=== PATIENT | male | born 1990 | race Two or more races ===

== ENCOUNTER 2018-06-12 23:14 | Emergency (ER) | payer MEDICAID ==
[~2018-06-12] VITALS: Ht 182.9 cm; Wt 90.7 kg
[2018-06-12 23:32] VITALS: BP 132/72
[2018-06-12] MEDS ORDERED: Norco 5mg/325mg tab ORAL ONE (23:45)
[2018-06-13] MEDS ORDERED: IBUPROFEN600 MG ORAL (00:04)
--- NOTE | 2018-06-13 00:04 | Emergency Room Report ---
History of Present Illness General Chief Complaint: Laceration Source: Patient Present Illness HPI Is a 27-year-old male who presents with laceration to his left eyebrow. He was carrying some water down the steps and was talking to his friend behind him. He was sepsis and missed a step and fell down 2 steps. He fell and hit his head on the average of the stair. He sustained a laceration to the left eyebrow area. He also has swelling to the left cheek area. No loss of consciousness. Pain is 9 out of 10. No nausea no vomiting. No fever chills but denies any other complaint. Allergies: Coded Allergies: No Known Allergies (Unverified , 06/12/18) Patient History Past Medical History: see triage record, old chart reviewed Past Surgical History: none Pertinent Family History: none Social History: Denies: smoking Immunizations: other Reviewed Nursing Documentation: PMH: Agreed; PSxH: Agreed Nursing Documentation-PMH Past Medical History: No Stated History Review of Systems Eye: Denies: eye pain, blurred vision ENT: Denies: ear pain, nose congestion, throat swelling Respiratory: Denies: cough, shortness of breath Cardiovascular: Denies: chest pain, palpitations Gastrointestinal: Denies: abdominal pain, diarrhea, nausea, vomiting Musculoskeletal: Denies: back pain, joint pain Skin: Denies: rash Neurological: Denies: headache, numbness Endocrine: Denies: increased thirst, increased urine Hematologic/Lymphatic: Denies: easy bruising All Other Systems: negative except mentioned in HPI Physical Exam Vital Signs Date Time Temp Pulse Resp B/P (MAP) Pulse Ox O2 Delivery O2 Flow Rate FiO2 06/12/18 23:27 98.6 82 16 126/69 99 Room Air vitals normal Sp02 EP Interpretation: reviewed, normal General Appearance: well appearing, no apparent distress, alert Head: normocephalic, atraumatic Eyes: bilateral eye PERRL, bilateral eye EOMI ENT: hearing grossly normal, normal pharynx, other - Face: He has a vertical 3 cm jagged laceration over the left eyebrow. He has a small contusion over the left cheek. No deformity. Extraocular movement intact. Neck: full range of motion, supple, no meningismus Respiratory: chest non-tender, lungs clear, normal breath sounds Cardiovascular #1: regular rate, rhythm, no murmur Gastrointestinal: normal bowel sounds, non tender, no mass, no organomegaly, no bruit, non-distended Musculoskeletal: back normal, gait/station normal, normal range of motion Psychiatric: mood/affect normal Skin: warm/dry Procedures Laceration/Wound Repair Laceration/Wound Repair : Consent: Verbal Wound Location: face Wound's Depth, Shape: into muscle, irregular, contused tissue Wound Length (cm): 3 Wound Explored: clean Irrigated w/ Saline (ccs): 500 Betadine Prep?: Yes Anesthesia: Lidocaine w/ Epi Volume Anesthetic (ccs): 3 Wound Repaired With: sutures Suture Size/Type: 5:0, proline Number of Sutures: 6 Patient Tolerated: Well Complications: None Medical Decision Making Diagnostic Impression: Primary Impression: Head injury, acute Qualified Codes: S09.90XA - Unspecified injury of head, initial encounter Additional Impressions: Laceration of eyebrow, left Qualified Codes: S01.112A - Laceration without foreign body of left eyelid and periocular area, initial encounter Facial contusion Qualified Codes: S00.83XA - Contusion of other part of head, initial encounter ER Course Patient with head injury and soft tissue injury secondary to fall. No fracture or bleed. We'll discharge home. CT/MRI/US Diagnostic Results CT/MRI/US Diagnostic Results : Imaging Test Ordered: CT had Impression negative per radiologist Last Vital Signs Date Time Temp Pulse Resp B/P (MAP) Pulse Ox O2 Delivery O2 Flow Rate FiO2 06/12/18 23:32 98.3 77 18 132/72 99 Room Air Status: improved Disposition: HOME, SELF-CARE Condition: Stable Scripts Ibuprofen* (MOTRIN*) 600 Mg Tablet 600 MG ORAL THREE TIMES A DAY, #30 TAB 0 Refills Prov: Shen Villegas MD 06/13/18 Referrals: NOT CHOSEN IPA/,REFERRING (PCP) Patient Instructions: Facial Laceration Additional Instructions: Follow-up with your DrBrandon in 5-7 days for suture removal. Return if symptom worsen. Shen Villegas MD Jun 13, 2018 00:04
[2018-06-13 00:25] VITALS: BP 130/72
[2018-06-13 00:27] VITALS: BP 132/72
--- NOTE | 2018-06-13 09:00 | Diagnostic Imaging Report ---
Indication: Head trauma headache Technique: Contiguous 5 mm thick transaxial imaging of the head obtained in a Siemens Sensation [address] scanner. Soft tissue and bone windows generated. Automatic Exposure Control was utilized. Total Dose length Product (DLP): 1354.[address] Dose Index Volume (CTDIvol): 70.38 mGy Comparison: none Findings: The size and configuration of the cortical sulci, basal cisterns, and ventricles are within normal limits for age. There is no mass effect, midline shift, or edema identified. There is no evidence of acute hemorrhage or abnormal intra-axial or extra-axial fluid collections. The bones are unremarkable. There is soft tissue swelling over the left frontal scalp. Impression: No mass effect, edema or acute bleed. Left frontal scalp contusion [facility] has communicated the preliminary results to the Emergency Department. Their findings are largely concordant with this report. The CT scanner at [facility] is accredited by the [employer] and the scans are performed using dose optimization techniques as appropriate to a performed exam including Automatic Exposure control.
[2018-06-13] MEDS ORDERED: MEDERMA20 GM TP (14:17)
[2018-06-13] MEDS ORDERED: MUPIROCIN22 GM TOPIC (14:17)
[2018-06-13] MEDS ORDERED: TYLENOL EXTRA500 MG ORAL (14:17)
== END 2018-06-13 01:10 | disposition home or self-care (01) ==
LOC: EMR 23:46
DX: S01.112A Laceration without foreign body of left eyelid and periocular area, initial encounter (principal); S00.83XA Contusion of other part of head, initial encounter; F17.200 Nicotine dependence, unspecified, uncomplicated; W10.8XXA Fall (on) (from) other stairs and steps, initial encounter; Y92.89 Other specified places as the place of occurrence of the external cause
CPT/HCPCS: 12051; 70450; 99284; Z7502

== ENCOUNTER 2018-06-13 13:00 | Emergency (ER) | payer MEDICAID ==
[~2018-06-13] VITALS: Ht 182.9 cm; Wt 90.7 kg
[~2018-06-13 13:00] MED LIST: IBUPROFEN600 MG ORAL
[2018-06-13 13:41] VITALS: BP 129/72
[2018-06-13] MEDS ORDERED: Bacitracin Oint UD TOPIC ONE (14:15)
[2018-06-13] MEDS ORDERED: Ketorolac 30mg Inj IM ONE (14:15)
--- NOTE | 2018-06-13 14:15 | Emergency Room Report ---
History of Present Illness General Chief Complaint: Wound Recheck/Suture Removal Source: Patient Present Illness HPI 27 Y/O male presents to the ED c/o 02/12 in severity pain and tenderness to the left eye brow area s/p sustaining laceration after mechanical trip and fall on stairs last night. Pt. was evaluated in the ED had CT imaging and suture repair. pt. is concerned about if his eyebrow will look "normal" after this is healed because that is "his good side of his face". Pt. denies bleeding or d/c from the wound. he reports getting the head dressing wet when showering this am. pt. also reports bruising appearing on his eyelid. Pt. denies new trauma or fall/. Denies N/V, LOC, difficulty with speech or memory. pt. also reports some soreness in the right shoulder. denies gross motor weaknesses or paresthesias. Allergies: Coded Allergies: No Known Allergies (Unverified , 06/12/18) Patient History Past Medical History: see triage record Past Surgical History: none Pertinent Family History: none Immunizations: UTD Reviewed Nursing Documentation: PMH: Agreed; PSxH: Agreed Nursing Documentation-PMH Past Medical History: No Stated History Review of Systems All Other Systems: negative except mentioned in HPI Physical Exam Vital Signs Date Time Temp Pulse Resp B/P (MAP) Pulse Ox O2 Delivery O2 Flow Rate FiO2 06/13/18 13:28 98.2 77 18 129/72 97 Room Air Sp02 EP Interpretation: reviewed, normal General Appearance: no apparent distress, alert, GCS 15, non-toxic Head: normocephalic, other - left eyebrow laceration with sutures in place, no bleeding, no discharge, no erythema or warmth. Eyes: bilateral eye normal inspection, bilateral eye PERRL, bilateral eye EOMI , bilateral eye other - no photophobia ENT: hearing grossly normal, normal voice Neck: full range of motion Respiratory: lungs clear, normal breath sounds, speaking full sentences Cardiovascular #1: regular rate, rhythm Cardiovascular #2: 2+ radial (R) Musculoskeletal: back normal, gait/station normal, normal range of motion, tender - mild TTP to the lateral right shoulder in the musculature. no obvious deformities, step offs, or clicking with ROM. pt. has FROM, no weakness, NVI Neurologic: alert, oriented x3, responsive, motor strength/tone normal, sensory intact, normal gait, speech normal, grossly normal Psychiatric: judgement/insight normal - excessive worry about scarring. Skin: normal color, no rash, warm/dry, well hydrated, wd healing/no infection noted - left eyebrow laceration with sutures in place, no bleeding, no discharge , no erythema or warmth. Medical Decision Making PA Attestation Dr. Wren is my supervising Physician whom patient management has been discussed with. Diagnostic Impression: Primary Impression: Encounter for post-traumatic wound check ER Course 27 Y/O male presents to the ED c/o 02/12 in severity pain and tenderness to the left eye brow area s/p sustaining laceration after mechanical trip and fall on stairs last night. Pt. was evaluated in the ED had CT imaging and suture repair. pt. is concerned about if his eyebrow will look "normal" after this is healed because that is "his good side of his face". Pt. denies bleeding or d/c from the wound. he reports getting the head dressing wet when showering this am. pt. also reports bruising appearing on his eyelid. Pt. denies new trauma or fall/. Denies N/V, LOC, difficulty with speech or memory. pt. also reports some soreness in the right shoulder. denies gross motor weaknesses or paresthesias. Ddx considered but are not limited to Fracture, dislocation, contusion, concussion Sprain/Strain/Spasm Vital signs: are WNL, pt. is afebrile H&PE are most consistent with contusion, no evidence of focal neurological deficit, no loss of consciousness. - no evidence of infection at this time. ORDERS: none required at this time. PE and HPI do not indicate CT at this time. ED INTERVENTIONS: -D/w pt reasoning for not doing a repeat Head CT, also discussed red flag symptoms to keep an eye out for that would indicate prompt return to the ED. - d/w pt. that I am unable to determine the extent of scarring at this time. d/ w pt. that scaring is inevitable since he sustained a laceration, and that I am trained to identify and treat emergent conditions. d/w pt. that his inquiry and scar concerns would most appropriately be addressed by a plastic surgeon rather than an ED provider. - Pt. verbalize his understanding and agreement with proposed treatment plan. DISCHARGE: At this time pt. is stable for d/c to home. Will provide printed patient care instructions, and any necessary prescriptions. Care plan and follow up instructions have been discussed with the patient prior to discharge. Last Vital Signs Date Time Temp Pulse Resp B/P (MAP) Pulse Ox O2 Delivery O2 Flow Rate FiO2 06/13/18 13:41 98.2 77 18 129/72 97 Room Air Disposition: HOME, SELF-CARE Condition: Stable Scripts Emollient Combination No.46 (MEDERMA) 20 Gm Cream..g. 1 APPLIC TP TID, #20 GM 2 Refills Prov: Sissy Young 06/13/18 Acetaminophen* (TYLENOL EXTRA STRENGTH*) 500 Mg Tablet 500 MG ORAL Q6H PRN for Mild Pain/Temp > 100.5, #20 TAB 0 Refills Prov: Sissy Young 06/13/18 Mupirocin* (MUPIROCIN*) 22 Gm Oint...g. 1 APPLIC TOPIC THREE TIMES A DAY, #22 GM Prov: Sissy Young 06/13/18 Referrals: NOT CHOSEN IPA/MD,REFERRING (PCP) Patient Instructions: Medical Screening Exam, Wound Check Additional Instructions: Take previously prescribed and new medications as directed. Do not start Scar Cream until after sutures have been removed. Follow up with a Primary Care Provider in 3-5 days, even if your symptoms have resolved. --Please review list of primary care clinics, if you do not already have a primary care provider Regarding Cosmetic appearance: Emergency department providers are primarily trained to identify and treat emergent conditions. Inquiries about cosmetic appearance/ scar concerns would most appropriately be addressed by plastic surgeon rather than an ED provider. Return sooner to ED if new symptoms occur, or current symptoms become worse, such as: nausea/vomiting, slurred speech, lapses in Memory, worsening of head pain, or redness/ warmth around the sutured laceration. - Please note that this Emergency Department Report was dictated using Particle Coderestaurant assistant manager technology software, occasionally this can lead to erroneous entry secondary to interpretation by the dictation equipment. Sissy Young Jun 13, 2018 14:15
[2018-06-13] MEDS ORDERED: TYLENOL EXTRA500 MG ORAL (14:17)
[2018-06-13] MEDS ORDERED: MEDERMA20 GM TP (14:17)
[2018-06-13] MEDS ORDERED: MUPIROCIN22 GM TOPIC (14:17)
[2018-06-13 14:28] VITALS: BP 129/72
== END 2018-06-13 14:30 | disposition home or self-care (01) ==
LOC: EMR 13:50
DX: Z48.00 Encounter for change or removal of nonsurgical wound dressing (principal); F17.200 Nicotine dependence, unspecified, uncomplicated; R51 Headache; M79.18 Myalgia, other site
CPT/HCPCS: 96372; 99283; J1885

== ENCOUNTER 2018-07-28 14:45 | Emergency (ER) | payer OTHER ==
[~2018-07-28] VITALS: Ht 182.9 cm; Wt 88.5 kg
[~2018-07-28 14:45] MED LIST changes: +MEDERMA20 GM TP; +MUPIROCIN22 GM TOPIC; +NORCO 5-325 TA1 EACH ORAL; +TYLENOL EXTRA500 MG ORAL; +VYVANSE10 MG PO
[2018-07-28 14:59] VITALS: BP 122/68
--- NOTE | 2018-07-28 15:11 | NUR ---
ED Nurse Note: patient walked into ED c/o of upper left abdomen pain that he rates a 10/10, patient states that he started feeling this pain last night. states "i have no idea how it started"
--- NOTE | 2018-07-28 15:29 | Emergency Room Report ---
History of Present Illness General Chief Complaint: Abdominal Pain Source: Patient Present Illness HPI Patient is a 27-year-old male presented after increased abdominal discomfort and diarrhea. Patient reports having prior history of sinus infection which he is currently taking antibiotics. Patient reports being on an antibiotic which he took twice a day initially for 3 days and subsequently had the antibiotic changed to levofloxacin. He reportedly took 1 dose of this medication and then had missed subsequent doses.He reports having prior history of ADHD as well as taking Lexapro for antidepressant use. Patient takes clonidine intermittently. Allergies: Coded Allergies: No Known Allergies (Unverified , 06/12/18) Patient History Past Medical History: see triage record Reviewed Nursing Documentation: PMH: Agreed; PSxH: Agreed Nursing Documentation-PMH Past Medical History: No Stated History Review of Systems All Other Systems: negative except mentioned in HPI Physical Exam Vital Signs Date Time Temp Pulse Resp B/P (MAP) Pulse Ox O2 Delivery O2 Flow Rate FiO2 07/28/18 14:59 97.5 74 18 122/68 98 Room Air General Appearance: well appearing, no apparent distress, alert, GCS 15 Head: normocephalic, atraumatic ENT: hearing grossly normal, normal voice Neck: full range of motion, supple Respiratory: lungs clear, normal breath sounds, no respiratory distress, speaking full sentences Cardiovascular #1: normal peripheral pulses, regular rate, rhythm, no edema Gastrointestinal: normal inspection, non tender, soft, no mass Musculoskeletal: no calf tenderness Neurologic: normal inspection, alert, oriented x3, responsive, normal gait Psychiatric: mood/affect normal Skin: no rash Medical Decision Making Diagnostic Impression: Primary Impression: Nonspecific abdominal pain ER Course Patient presented for abdominal pain. Differential diagnoses included ischemic bowel, appendicitis, perforated viscus, abdominal aortic aneurysm, inferior myocardial infarction, viral gastroenteritis. Patient has a benign exam and does not appear to require any further imaging or laboratory testing at this time. Patient was given medications for symptomatic treatment. Patient appears to have nonspecific abdominal pain. Is likely related to patient's recent use of azithromycin. Patient was advised that he may need further workup for C. difficile if symptoms persist. Patient did not appear to have any acute abdomen at this time. The patient is advised to follow up with primary care doctor in 1-2 days. Patient is advised to return if any worsening condition or if any changes in status that are concerning. This report is dictated with Dragon superintendent container terminal software which may occasionally lead to discrepancies related to use of this software. EKG Diagnostic Results Rate: normal - 57 Rhythm: NSR ST Segments: no acute changes Last Vital Signs Date Time Temp Pulse Resp B/P (MAP) Pulse Ox O2 Delivery O2 Flow Rate FiO2 07/28/18 14:59 74 18 Room Air 07/28/18 14:59 97.5 122/68 98 Status: improved Disposition: HOME, SELF-CARE Condition: Stable Scripts Omeprazole Magnesium (PRILOSEC OTC) 20 Mg Tablet.dr 20 MG ORAL DAILY, #30 TAB Prov: Scott Contreras MD 07/28/18 Ondansetron (Zofran) 4 Mg Tablet 4 MG ORAL Q6H PRN for Nausea & Vomiting, #30 TAB 0 Refills Prov: Scott Contreras MD 07/28/18 Dicyclomine Hcl* (DICYCLOMINE HCL*) 10 Mg Capsule 10 MG PO QID, #30 CAP Prov: Scott Contreras MD 07/28/18 Scott Contreras MD Jul 28, 2018 15:29
--- NOTE | 2018-07-28 16:00 | NUR ---
HAND-OFF: Report given to MAGGIE Ordaz.
[2018-07-28] MEDS ORDERED: DICYCLOMINE HCL10 MG PO (16:34)
[2018-07-28] MEDS ORDERED: ZOFRAN4 MG ORAL (16:34)
[2018-07-28] MEDS ORDERED: PRILOSEC OTC20 MG ORAL (16:34)
[2018-07-28 16:45] VITALS: BP 125/72
--- NOTE | 2018-07-28 16:45 | NUR ---
ED Nurse Note: Patient AAOx4. ambulatory. left wth steady gait. Pt. education done regarding d/c papers and precriptions. Pt. verbalized the undertsanding of the teaching. ID armband removed
--- NOTE | 2018-07-29 14:17 | Cardiology Report ---
APPROVED REPORT EKG Measurement Heart [id number] Sinus bradycardia Otherwise normal ECG
--- NOTE | 2018-07-29 15:42 | Diagnostic Imaging Report ---
Indications: History of sinus infection Technique: Spiral images obtained through the maxillofacial sinuses. No IV contrast utilized. Multiplanar reconstructions were generated.Total dose length product 552 mGycm. CTDIvol(s) 28 mGy. Dose reduction achieved using automated exposure control Comparison: none Findings: There is minimal mucosal thickening of the anterior wall of the right maxillary sinus. The sinuses are otherwise clear. The maxillary ostia are patent. The nasal septum demonstrates sigmoid deviation. No acute fractures. The visualized intracranial structures are unremarkable. The optic globes are intact. The retroseptal orbits are unremarkable. The dentition is intact. Impression: Minimal right maxillary sinus disease. Otherwise unremarkable. This agrees with the preliminary interpretation provided overnight by [facility]. The CT scanner at [facility] is accredited by the [employer] and the scans are performed using protocols designed to limit radiation exposure to as low as reasonably achievable to attain images of sufficient resolution adequate for diagnostic evaluation.
--- NOTE | 2018-07-29 15:43 | Diagnostic Imaging Report ---
Indication: Abdominal pain Technique: Supine view of the abdomen Comparison: none Findings: Bowel gas pattern is unremarkable. No unusual masses or calcifications. The bones are unremarkable Impression: Negative
== END 2018-07-28 16:45 | disposition home or self-care (01) ==
LOC: EMR 15:30
DX: R10.12 Left upper quadrant pain (principal); R19.7 Diarrhea, unspecified; F17.200 Nicotine dependence, unspecified, uncomplicated; F90.9 Attention-deficit hyperactivity disorder, unspecified type
CPT/HCPCS: 70486; 74018; 87324; 93005; 99284

== ENCOUNTER 2018-11-22 11:32 | Emergency (ER) | payer BC, OTHER ==
[~2018-11-22] VITALS: Ht 182.9 cm; Wt 93.0 kg
[~2018-11-22 11:32] MED LIST changes: +DICYCLOMINE HCL10 MG PO; +PRILOSEC OTC20 MG ORAL; +ZOFRAN4 MG ORAL
--- NOTE | 2018-11-22 11:58 | Emergency Room Report ---
History of Present Illness General Chief Complaint: Multiple Trauma/Fall Source: Patient Present Illness HPI 28-year-old male complains of left shoulder pain status post mechanical fall 2 days ago. States that his home in [place] has a very steep driveway and he was running to catch an [employer] when he slipped and fell landing on his left shoulder. States that he has painful range of motion of his left shoulder associate with bruising and swelling. Patient denies any previous history of shoulder injuries and has not taken medication for symptoms. Patient denies any numbness, tingling, pressure, paralysis, cyanosis, loss of sensation, or loss of range of motion. Additionally, the patient has chronic right foot pain. States his pain is on the plantar aspect of the base of the toes. He has no modifying factors and denies any history of gout or plantar fasciitis. There is no specific timing to his pain only that this is a recurrent problem that is worse with ambulation. Allergies: Coded Allergies: No Known Allergies (Unverified , 06/12/18) Patient History Past Medical History: see triage record Past Surgical History: none Pertinent Family History: none Reviewed Nursing Documentation: PMH: Agreed; PSxH: Agreed Nursing Documentation-PMH Past Medical History: No Stated History Review of Systems All Other Systems: negative except mentioned in HPI Physical Exam Vital Signs Date Time Temp Pulse Resp B/P (MAP) Pulse Ox O2 Delivery O2 Flow Rate FiO2 11/22/18 11:45 98.1 102 18 128/70 96 Room Air Sp02 EP Interpretation: reviewed, normal General Appearance: no apparent distress, alert, GCS 15, non-toxic Head: normocephalic, atraumatic Eyes: bilateral eye normal inspection, bilateral eye PERRL ENT: hearing grossly normal, normal pharynx, no angioedema, normal voice Neck: full range of motion, supple/symm/no masses Respiratory: chest non-tender, lungs clear, normal breath sounds, speaking full sentences Cardiovascular #1: normal peripheral pulses, regular rate, rhythm Musculoskeletal: back normal, gait/station normal, normal range of motion, other - echymosis along distal left deltoid, tender - left deltoid / AC joint Neurologic: alert, oriented x3, responsive, motor strength/tone normal, sensory intact, speech normal Psychiatric: judgement/insight normal, memory normal, mood/affect normal, no suicidal/homicidal ideation Skin: normal color, no rash, warm/dry, well hydrated Medical Decision Making PA Attestation Dr. Estrada is my supervising physician with whom patient management has been discussed with. Diagnostic Impression: Primary Impression: Contusion of left shoulder, initial encounter Additional Impression: Right foot pain ER Course Pt. presents to the ED c/o shoulder pain Ddx considered but are not limited to strain, sprain, dislocation, contusion, adhesive capsulitis, fracture, shoulder impingement Vital signs: are WNL, pt. is afebrile H&PE are most consistent with shoulder contusion. Patient has +CMS with neg XR. FROM. No head injury. ORDERS: Shoulder XR negative for fracture or dislocations ED INTERVENTIONS: None required at this time DISCHARGE: At this time pt. is stable for d/c to home. Will provide printed patient care instructions, and any necessary prescriptions. Care plan and follow up instructions have been discussed with the patient prior to discharge. Other X-Ray Diagnostic Results Other X-Ray Diagnostic Results : X-Ray ordered: XR Left Shoulder/ XR Right Foot # of Views/Limited Vs Complete: Complete Indication: Pain EP Interpretation: Yes PA Xray: Interpretation reviewed, by supervising MD, and agrees with findings. Interpretation: no dislocation, no soft tissue swelling, no fractures Impression: No acute disease PA Scribe Text Lissa Dooley PA-C Last Vital Signs Date Time Temp Pulse Resp B/P (MAP) Pulse Ox O2 Delivery O2 Flow Rate FiO2 11/22/18 11:45 98.1 102 18 128/70 96 Room Air Disposition: HOME, SELF-CARE Condition: Stable Scripts Lidocaine (Lidoderm) 1 Each Adh..patch 1 PATCH TOPIC Q12HR, #7 PATCH 0 Refills Patch(es) may remain in place for up to 12 hours in any 24-hour period. Prov: Lissa Dooley 11/22/18 Naproxen* (NAPROXEN*) 500 Mg Tablet. 500 MG ORAL TWICE A DAY for 10 Days, #20 TAB Prov: Lissa Dooley 11/22/18 Patient Instructions: Shoulder Range of Motion Exercises Additional Instructions: Take medication as directed. Patient advised to follow up with primary care provider within next 3-5 days should your symptoms continue. Advised patient to use RICE therapy and nsaids as prescribed. Patient is to go to the ER immediately if they experience any pain that is not responding to medication, excess swelling, pressure feeling, loss of color, cyanosis, paralysis, or numbness. Lissa Dooley Nov 22, 2018 11:58
--- NOTE | 2018-11-22 12:10 | NUR ---
ED Nurse Note: pt walked in c/o left shoulder pain, pt states he accidentally slipped and fell on his left shoulder in driveway, denies head injuries. pt AA&ox4, gcs=15, skin warm and dry, resp even and unlabored on RA, CMS intact BUE/BLE, will cont monitor.
[2018-11-22 12:22] VITALS: BP 128/70
[2018-11-22] MEDS ORDERED: NAPROXEN500 M1 ORAL (12:36)
[2018-11-22] MEDS ORDERED: LIDODERM700 M1 TOPIC (12:59)
[2018-11-22] MEDS ORDERED: Ketorolac 30mg Inj ONE (13:07)
--- NOTE | 2018-11-22 13:11 | NUR ---
ED Nurse Note: pt c/o severe left arm pain, 30mg toradol im one time order received from [facility].
[2018-11-22 13:12] VITALS: BP 132/79
--- NOTE | 2018-11-22 13:12 | NUR ---
ED Nurse Note: pt cleared to be d/c per ERMD, pt discharge and aftercare instruction provided w/ prescription, pt education done via discussion and handout, pt advised to follow up with pcp or return to ed if changes in condition, pt verbalized understanding and agrees with plan, vss, ambulatory w/ steady gait, left w/ all belongings, ID band removed.
[2018-11-22] MEDS: Ketorolac 30mg Inj IM ONE (13:14)
--- NOTE | 2018-11-22 13:50 | Diagnostic Imaging Report ---
Indication: Pain status post injury Technique: XRAY Foot Complete R Comparison: None Findings: Bone mineralization within normal limits. No acute fractures identified. Joint spaces and alignment preserved. No radiopaque foreign body. Impression: No evidence of acute fracture or dislocation.
--- NOTE | 2018-11-22 13:51 | Diagnostic Imaging Report ---
Indication: Pain status post injury Technique: 3 views of the left shoulder Comparison: None Findings: Bone mineralization within normal limits. There is no evidence of acute fracture. Glenohumeral and acromioclavicular joints are maintained. Imaged portions of the left lung are clear. Impression: No acute fracture or dislocation
== END 2018-11-22 13:15 | disposition home or self-care (01) ==
LOC: EMR 12:15
DX: S40.012A Contusion of left shoulder, initial encounter (principal); W01.0XXA Fall on same level from slipping, tripping and stumbling without subsequent striking against object, initial encounter; Y92.008 Other place in unspecified non-institutional (private) residence as the place of occurrence of the external cause; M79.671 Pain in right foot
CPT/HCPCS: 73030; 73630; 96372; 99283; J1885